=== PATIENT | male | born 1950 | race Caucasian/White ===

== ENCOUNTER 2024-02-20 11:13 | Inpatient (IN) | payer OTHER, MEDICAID ==
[~2024-02-20] VITALS: Ht 177.8 cm; Wt 72.6 kg
[2024-02-20 11:20] VITALS: BP 104/60; PULSE 70; RESP 18; TEMP 98; O2SAT 96
[2024-02-20] MEDS: NACL 0.9% 500 ML IV ONE (12:18)
[2024-02-20 12:37] LABS: APPEARANCE,URINE CLEAR (CLEAR); BILIRUBIN,URINE NEGATIVE (NEGATIVE); BLOOD, URINE NEGATIVE (NEGATIVE); COLOR,URINE YELLOW (YELLOW); LEUKOCYTE ESTERASE ,URINE 1+ (NEGATIVE); NITRITE, URINE NEGATIVE (NEGATIVE); PROTEIN,URINE NEGATIVE (NEGATIVE); UGLUCOSE NEGATIVE (NEGATIVE); UROBILINOGEN,URINE 0.2 EU/dL (0.2 - 1)
[2024-02-20 12:51] LABS: BACTERIA,URINE 10-30 (MOD) /HPF (None Seen); MUCUS,URINE None Seen /LPF (None Seen); RBC,URINE 0-5 /HPF (0-5); SQUAMOUS EPITHELIAL CELL,UR None Seen /LPF (0-3 (FEW)); TRICHOMONAS,URINE None Seen /HPF (None Seen); WBC,URINE 16-25 (MOD) /HPF (0-5); WHITE BLOOD CELL CASTS,URINE None Seen /LPF (None Seen); YEAST,URINE None Seen /HPF (None Seen)
[2024-02-20] MEDS ORDERED: cefTRIAXone 1,000 MG VIAL ONE (13:20)
[2024-02-20 13:41] LABS: HEMATOCRIT 31.4 % (36-52); HEMOGLOBIN 10.6 g/dL (12.0-18.0); MEAN CORPUSCULAR HEMOGLOBIN 31 pg (27-31); MEAN CORPUSCULAR HGB CONC 34 g/dL (33-37); MEAN CORPUSCULAR VOLUME 90.7 fL (80-94); PLATELET COUNT (AUTO) 163 K/uL (140-450); RED BLOOD CELL COUNT(AUTO) 3.47 MIL/uL (4.20-6.10); RED CELL DISTRIBUTION WIDTH 14.5 % (11.6-13.7); WHITE BLOOD COUNT (AUTO) 9.4 K/uL (4.8-10.8)
[2024-02-20 13:56] LABS: ANION GAP 11.8 (8-16); CALCIUM 9.5 mg/dL (8.5-10.1); CARBON DIOXIDE 25.9 mmol/L (21-32); CHLORIDE 104 mmol/L (98-107); CREATININE 0.9 mg/dL (0.6-1.3); GLUCOSE 93 mg/dL (74-106); POTASSIUM 3.7 mmol/L (3.5-5.1); SODIUM SERUM 138 mmol/L (136-145); UREA NITROGEN, BLOOD 32 mg/dL (7-18)
[2024-02-20 14:14] LABS: ALANINE AMINOTRANSFERASE 17 U/L (12-78); ALBUMIN 3.1 g/dL (3.4-5.0); ALKALINE PHOSPHATASE 74 U/L (50-136); ASPARTATE AMINOTRANSFERASE 61 U/L (15-37); BILIRUBIN,DIRECT 0.3 mg/dL (0.0-0.3); CREATINE KINASE, TOTAL 1093 U/L (39-308); MAGNESIUM 1.9 mg/dL (1.8-2.4); PHOSPHORUS 2.5 mg/dL (2.5-4.9); THYROID STIMULATING HORMONE 0.96 uIU/mL (0.34-3.74); TOTAL BILIRUBIN 1.2 mg/dL (0.0-1.0); TOTAL PROTEIN, SERUM 6.3 g/dL (6.4-8.2); VALPROIC ACID 8 ug/ml (50-100)
[2024-02-20 14:16] LABS: EOSINOPHILS % (MANUAL) 2 % (0-4); LYMPHOCYTES % (MANUAL) 14 % (20-46); MONOCYTES % (MANUAL) 5 % (5-12)
[2024-02-20 15:25] LABS: CKMB RELATIVE INDEX 1.5 (0.0-2.5); CREATINE KINASE MB 16.5 ng/mL (0-3.6)
[2024-02-20] MEDS ORDERED: ASPIRIN PO (15:27)
[2024-02-20] MEDS ORDERED: CARB1TAB37 PO (15:28)
[2024-02-20] MEDS ORDERED: DIVA125E1 PO (15:29)
[2024-02-20] MEDS ORDERED: BISA-213 RC (15:31)
[2024-02-20] MEDS ORDERED: MAGN400S60 PO (16:57)
[2024-02-20] MEDS ORDERED: MIRT-120 PO (16:58)
[2024-02-20] MEDS ORDERED: QUET25TA PO (17:00)
[2024-02-20] MEDS ORDERED: ACET-2619 PO (17:04)
[2024-02-20] MEDS ORDERED: ONDANSETRON 4 MG/2 ML VIAL IVP PRN (17:10)
[2024-02-20] MEDS ORDERED: ACETAMINOPHEN 325 MG TAB PO PRN (17:10)
[2024-02-20] MEDS ORDERED: MORPHINE SULFATE 2 MG/ML SYR IVP PRN (17:10)
[2024-02-20] MEDS: NACL 0.9% 1,000 ML IV SCH (18:06)
[2024-02-20 18:17] VITALS: BP 125/53; PULSE 74; RESP 18; TEMP 98.5; O2SAT 98
[2024-02-20 19:00] VITALS: PULSE 63; RESP 18
[2024-02-21] VITALS (7 sets, daily range): BP systolic 90–123; BP diastolic 56–73; PULSE 63–96; RESP 18–20; TEMP 90.3–98.5; O2SAT 97–100
[2024-02-21 07:02] LABS: ANION GAP 9.7 (8-16); CALCIUM 9.4 mg/dL (8.5-10.1); CARBON DIOXIDE 28.2 mmol/L (21-32); CHLORIDE 107 mmol/L (98-107); CREATININE 0.8 mg/dL (0.6-1.3); GLUCOSE 88 mg/dL (74-106); POTASSIUM 3.9 mmol/L (3.5-5.1); SODIUM SERUM 141 mmol/L (136-145); UREA NITROGEN, BLOOD 28 mg/dL (7-18)
[2024-02-21 07:06] LABS: BASOPHILS % (AUTO) 0.2 % (0.0-2.0); EOSINOPHILS # (AUTO) 0.1 K/uL (0-0.4); EOSINOPHILS % (AUTO) 1.3 % (0.0-4.0); HEMATOCRIT 28.6 % (36-52); HEMOGLOBIN 9.8 g/dL (12.0-18.0); LYMPHOCYTES # (AUTO) 1.3 K/uL (2.0-11.5); LYMPHOCYTES % (AUTO) 16.5 % (20.5-51.1); MEAN CORPUSCULAR HEMOGLOBIN 31 pg (27-31); MEAN CORPUSCULAR HGB CONC 34 g/dL (33-37); MEAN CORPUSCULAR VOLUME 90.3 fL (80-94); MONOCYTES # (AUTO) 0.7 K/uL (0.8-1.0); MONOCYTES % (AUTO) 9.7 % (1.7-9.3); NEUTROPHILS # (AUTO) 5.5 K/uL (1.8-7.7); NEUTROPHILS % (AUTO) 72.3 % (42.2-75.2); PLATELET COUNT (AUTO) 178 K/uL (140-450); RED BLOOD CELL COUNT(AUTO) 3.17 MIL/uL (4.20-6.10); RED CELL DISTRIBUTION WIDTH 14.4 % (11.6-13.7); WHITE BLOOD COUNT (AUTO) 7.6 K/uL (4.8-10.8)
[2024-02-21] MEDS: CARBIDOPA/LEVODOPA 25/100 MG 1 TAB PO SCH (18:00)
[2024-02-21] MEDS: DIVALPROEX SPRINKLES 125 MG CAPDR PO SCH (21:00)
[2024-02-21] MEDS: MIRTAZAPINE 15 MG TAB PO SCH (21:00)
[2024-02-22 04:00] VITALS: BP 108/60; PULSE 74; RESP 16; TEMP 97.6; O2SAT 96
[2024-02-22 08:00] VITALS: BP 129/66; PULSE 56; PULSE 69; RESP 17; RESP 19; TEMP 98.1; O2SAT 97; O2SAT 99
[2024-02-22 16:00] VITALS: BP 136/67; PULSE 62; RESP 18; TEMP 97.8; O2SAT 100
[2024-02-22 20:00] VITALS: BP 132/66; PULSE 82; PULSE 98; RESP 18; TEMP 98.5; O2SAT 98
[2024-02-23 04:00] VITALS: BP 124/77; PULSE 60; RESP 18; TEMP 98; O2SAT 98
[2024-02-23 08:00] VITALS: BP 125/65; PULSE 60; RESP 18; TEMP 97.4; O2SAT 98
== END 2024-02-23 16:55 | DRG 536 ==
LOC: MED 11:13 → MMU 17:11 → MTU 17:16
PROVIDERS: ADMIT Hospitalist; ATTEND Hospitalist
DX: S32.592A Other specified fracture of left pubis, initial encounter for closed fracture (principal); N39.0 Urinary tract infection, site not specified; K56.41 Fecal impaction; W18.39XA Other fall on same level, initial encounter; Y93.89 Activity, other specified; Y92.89 Other specified places as the place of occurrence of the external cause; Y99.8 Other external cause status; Z79.899 Other long term (current) drug therapy
CPT/HCPCS: 36415; 70450; 71045; 72125; 72170; 72192; 80048; 80076; 81001; 82550; 82553; 83605; 83735; 83880; 84100; 84443; 84484; 85025; 87040; 87081; 87086; 96361; 96365; 97110; 97112; 97163-GP; 97530; 99285; J0696; J7060; Q0092